=== PATIENT | female | born 1960 | race Caucasian/White ===

== ENCOUNTER → 2017-09-17 | Outpatient (CLI) | payer OTHER | END | disposition home or self-care (01) | LOC: C.PAPS 09:47 | PROVIDERS: ATTEND Obstetrics & Gynecology | DX: Z01.419 Encounter for gynecological examination (general) (routine) without abnormal findings (principal); Z78.0 Asymptomatic menopausal state ==

== ENCOUNTER → 2017-10-22 | Outpatient (CLI) | payer OTHER ==
--- NOTE | 2017-10-23 15:14 | MAMMOGRAPHY REPORT ---
BILATERAL DIGITAL SCREENING MAMMOGRAM TOMOSYNTHESIS WITH CAD: 10/22/2017 CLINICAL HISTORY: Routine screening. TECHNIQUE: Breast tomosynthesis in addition to standard 2D mammography was performed. Current study was also evaluated with a Computer Aided Detection (CAD) system. COMPARISON: Comparison is made to exams dated: 04/04/2016 mammogram, 04/01/2015 mammogram, 03/24/2014 m ammogram, 08/24/2011 mammogram - [facility], 04/20/2009, and 01/15/2008. BREAST COMPOSITION: The tissue of both breasts is heterogeneously dense, which may obscure small mas ses. FINDINGS: There is a 6 mm nodular asymmetry in the far superior posterior right breast, only seen on the MLO view (tomosynthesis slice 1718/60), which was not definitely seen on prior exams. Addition al spot compression tomosynthesis, exaggerated lateral right CC view and possible ultrasound are jimi mmended. No other suspicious mass, architectural distortion or cluster of microcalcifications is seen. IMPRESSION: ACR BI-RADS CATEGORY 0: INCOMPLETE EVALUATION: NEED ADDITIONAL IMAGING EVALUATION The 6 mm nodular asymmetry in the superior right breast needs additional evaluation. The patient will be called to schedule an appointment. Approximately 10% of breast cancers are not detected with mammography. A negative mammographic report should not delay biopsy if a clinically suggestive mass is present. Erika Paul M.D. ay/:10/22/2017 16:22:30 Club Steward: James WINSLOW(Beatrice)(Julio), [facility] letter sent: Addl Imaging 0 BI-RADS Code: ACR BI-RADS Category 0: Incomplete Evaluation: Need Additional Imaging Evaluation
== END | disposition home or self-care (01) ==
LOC: C.MAMM 10:29
PROVIDERS: ATTEND Obstetrics & Gynecology
DX: Z12.31 Encounter for screening mammogram for malignant neoplasm of breast (principal); N64.9 Disorder of breast, unspecified

== ENCOUNTER → 2017-11-02 | Outpatient (CLI) | payer OTHER ==
--- NOTE | 2017-11-05 12:41 | MAMMOGRAPHY REPORT ---
UNILATERAL RIGHT DIGITAL DIAGNOSTIC MAMMOGRAM TOMOSYNTHESIS AND TARGETED RIGHT ULTRASOUND: 11/02/2017 CLINICAL HISTORY: Callback from screening mammogram for right breast asymmetry. TECHNIQUE: Breast tomosynthesis in addition to standard 2D mammography was performed. Spot compress ion right XCCL and MLO 2D and tomosynthesis images were obtained. COMPARISON: Comparison is made to exams dated: 10/22/2017 mammogram, 04/04/2016 mammogram, 04/01/2015 m ammogram, 03/24/2014 mammogram, 08/24/2011 mammogram - [facility], and 04/20/2009. BREAST COMPOSITION: The tissue of the right breast is heterogeneously dense, which may obscure small masses. FINDINGS: Spot compression views demonstrate a persistent low-density lobulated 12 mm asymmetry seen within the right superior breast on the MLO view, not clearly evident on the XCCL view but thought to project laterally based on the tomosynthesis localizer bar. Targeted ultrasound was performed of the right upper outer quadrant in the region of the mammographic asymmetry. In the right breast at 9:00, 8 cm from the nipple, there is a nodular mixed echogenicity isoechoic and hyperechoic 11 x 4 mm region which likely represents normal fibroglandular tissue alth ough a skin marker was placed on the skin at this site. A normal vessel was also seen in the right 9 :00 breast far laterally; a BB was placed on the skin in this region and right XCCL and MLO tomosynth esis images were obtained to see if either of these 2 areas may correlate with the mammographic asymm etry. The 2 markers placed on the skin do not align with the mammographic asymmetry, indicating that the 2 areas seen on ultrasound likely do not correlate with the mammographic finding. Repeat ultras ound was performed, which shows a morphologically normal lymph node in the right axillary tail region measuring 6 x 7 mm, which does not clearly correlate with the mammographic asymmetry. The mammograp hic finding does not have suspicious features, although it does remain indeterminate given that a emely ar sonographic correlate was not found. The options of short interval follow-up versus MRI were disc ussed with the patient, and at this time we will proceed to breast MRI. IMPRESSION: ACR BI-RADS CATEGORY 0: INCOMPLETE EVALUATION: NEED ADDITIONAL IMAGING EVALUATION, TARG ETED ULTRASOUND ACR BI-RADS CATEGORY 0: INCOMPLETE EVALUATION: NEED ADDITIONAL IMAGING EVALUATION Persistent low density asymmetry seen within the right superior breast on the MLO view only, without a clear sonographic correlate evident. While this could represent normal fibroglandular tissue or an intramammary lymph node, it was not clearly evident on prior mammograms. Therefore, the asymmetry r emains indeterminant and further evaluation with a contrast enhanced bilateral breast MRI is recommen ded for further evaluation. The patient has been verbally notified of the results. Approximately 10% of breast cancers are not detected with mammography. A negative mammographic report should not delay biopsy if a clinically suggestive mass is present. Abbey Martinez M.D. ah/:11/02/2017 11:56:33 Field Service Rep: James Carpenter RT(R)(M), [facility] letter sent: Addl Imaging 0 BI-RADS Code: ACR BI-RADS Category 0: Incomplete Evaluation: Need Additional Imaging Evaluation Ult rasound BI-RADS: ACR BI-RADS Category 0: Incomplete Evaluation: Need Additional Imaging Evaluation
== END | disposition home or self-care (01) ==
LOC: C.MAMM 09:00
PROVIDERS: ATTEND Obstetrics & Gynecology
DX: N64.89 Other specified disorders of breast (principal)

== ENCOUNTER → 2017-11-19 | Outpatient (CLI) | payer OTHER ==
[~2017-11-19] MED LIST: GADAVIST IV PRN
--- NOTE | 2017-11-20 07:42 | MAMMOGRAPHY REPORT ---
BREAST MRI OF BOTH BREASTS : 11/19/2017 CLINICAL HISTORY: 57-year-old woman with a low density bilobed versus beaded tubular asymmetry in the far superior right breast on the MLO view, without sonographic correlate identified. She presents f or breast MRI evaluation to exclude any abnormal enhancement or enhancing mass. COMPARISON: Comparison is made to exams dated: 11/02/2017 mammogram, 11/02/2017 ultrasound, 10/22/2017 mammogram, 04/04/2016 mammogram, 04/01/2015 mammogram, and 03/24/2014 mammogram - [facility]. TECHNIQUE: Using a 1.5 Evie magnet and dedicated breast coil, multisequence axial images were obtain ed through the breasts. After uneventful IV administration of 6 mL of Gadavist, dynamic multiphase c ontrast-enhanced axial images, and sagittal postcontrast were obtained. Temporal subtraction axial i mages and 3-D MIP images are provided. Everything was then reviewed on a 3-D workstation, [employer]. FINDINGS: Right breast: There is no significant background parenchymal enhancement. There is no evidence of a suspicious enhancing mass or non-mass enhancement in the far superior, lateral right breast in the ar ea of persistent asymmetry seen mammographically. When evaluating the spot compression tomosynthesis images, this could possibly represent a beaded vascular structure. With no suspicious enhancement o n MRI this is considered benign. There is a subtle ovoid area of focal non-mass enhancement measurin g 7 x 3 x 4 mm in the 6:00 middle one third of the right breast (sagittal page 93/124, axial page 106 /136), with corresponding T2 hyperintensity and no associated kinetics. Although this could represen t a cyst or focal fibrocystic change, given the conspicuous nature on the subtraction images, a short interval follow-up breast MRI is recommended to ensure stability in 6 months. Left breast: There is no significant background parenchymal enhancement. There is a 5 x 4 mm focus o f enhancement in the 6:00 middle one third of the left breast (sagittal page 33/124, axial page 104/1 36), with corresponding T2 hyperintensity and central non-enhancement. No associated kinetics based on enhancement characteristics. This could represent a benign mass such as a fibroadenoma with nonen hancing internal septum versus a rim-enhancing cyst. Overall it is probably benign but a six-month f ollow-up MRI is recommended to ensure stability, given the conspicuous nature. IMPRESSION: ACR-BI-RADS CATEGORY 3: PROBABLY BENIGN 1. There is no suspicious non-mass enhancement or enhancing mass in the superior right breast to cor respond with the beaded tubular structure seen on the spot compression tomosynthesis images and right MLO mammogram. The lack of any abnormality confirms benignity and the mammographic asymmetry could have possibly represented a portion of an ectatic vascular structure. 2. There is a focus of enhancement in the 6:00 far inferior left breast, and focal non-mass enhancem ent measuring 7 mm in the 6:00 right breast that could represent rim-enhancing cysts, benign fibroade nomas or focal fibrocystic change. A six-month follow-up breast MRI is recommended to ensure stabili ty. Erika Paul M.D. ay/:11/19/2017 17:01:41 [employer] Clerk: Dr. Erika Paul, [facility] letter sent: Follow Up Recommended 3 BI-RADS Code: ACR-BI-RADS Category 3: Probably Benign
== END | disposition home or self-care (01) ==
LOC: C.MRI 11:22
PROVIDERS: ATTEND Obstetrics & Gynecology
DX: R92.2 Inconclusive mammogram (principal)